=== PATIENT | female | born 1935 | race Asian ===

== ENCOUNTER 2025-05-19 18:27 | Emergency (ER) | payer MEDICARE, SELFPAY ==
[2025-05-19] VITALS (7 sets, daily range): BP systolic 120–156; BP diastolic 50–70; PULSE 53–66; RESP 12–21; TEMP 36.1–37; O2SAT 96–99; BMI 26.0
--- NOTE | 2025-05-19 18:30 | EKG_ITS ---
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1935 Requested By: Crow Kruger Order Number: [id number] Reading MD: Crow Kruger Measurements Intervals [place] Rate: 50 P: 40 VT: 164 QRS: -41 QRSD: 110 T: 8 QT: 455 QTc: 415 Interpretive Statements SINUS BRADYCARDIA LEFT AXIS DEVIATION [QRS AXIS < -30] LOW QRS VOLTAGE IN PRECORDIAL LEADS [QRS DEFLECTION < 1.0 mV IN CHEST LEADS] MINIMAL VOLTAGE CRITERIA FOR LVH, CONSIDER NORMAL VARIANT [MEETS CRITERIA IN ONE OF: R(aVL), S(V1), R(V5), R(V5/V6)+S(V1)] Compared to ECG 06/10/2024 20:26:18 Low QRS voltage now present Sinus rhythm no longer present /store/S0/[id number]/ecg/[id number].pdf
--- NOTE | 2025-05-19 18:50 | PD.EDSYNC ---
ED Syncope RME/HPI General Chief Complaint: Syncope / Near Syncope Stated Complaint: SYNCOPE Time Seen by Provider: 05/19/25 18:33 Arrival date/time: 05/19/25 18:27 RME / HPI RME / HPI narrative: Dr. Salcedo?s Main ED Evaluation: 89yo female SANTHOSH presents after a brief syncopal episode after having been exposed to ambient temperatures of over 100 degrees for ~1 hour while in a sitting position. Patient expressed depressed LOC and became minimally response, notified EMS, and was transported here. No seizure activity. No fever or chills. Denies chest pain, shortness of breath. Upon presentation to the ED, patient reports generalized fatigue/weakness. PMH HTN, hypothyroidism, and previous tachyarrhythmia that is controlled with metoprolol. No past social history. PHS includes thyroidectomy, , and knee surgery. Related Data Home Medications ?Medication ?Instructions ?Recorded ?Confirmed amlodipine 5 mg tablet 5 mg PO QDAY 06/10/24 06/10/24 levothyroxine 75 mcg tablet 75 mcg PO QDAY 06/10/24 06/10/24 losartan 50 mg tablet 50 mg PO QDAY 06/10/24 06/10/24 lovastatin 40 mg tablet 40 mg PO QPM 06/10/24 06/10/24 metoprolol succinate 50 mg 50 mg PO QDAY 06/10/24 06/10/24 tablet,extended release 24 hr nitroglycerin 0.4 mg sublingual See Rx Instructions .Route 06/10/24 06/10/24 tablet .COMPLEX PRN Chest Pain Previous Rx's ?Medication ?Instructions ?Recorded nitrofurantoin 100 mg PO Q12H 5 days #10 caps 05/19/25 monohydrate/macrocrystals 100 mg capsule (Macrobid) phenazopyridine 100 mg tablet 100 mg PO TID PRN pain 6 doses #6 05/19/25 (Pyridium) tabs Allergies Allergy/AdvReac Type Severity Reaction Status Date / Time bacitracin Allergy Verified 05/19/25 18:31 hydrochlorothiazide Allergy Verified 05/19/25 18:31 lisinopril Allergy Verified 05/19/25 18:31 Penicillins Allergy Verified 05/19/25 18:31 polymyxin B Allergy Verified 05/19/25 18:31 Review of Systems Review of Systems Systems Reviewed: All systems reviewed, normal except as documented Past Medical History Past Medical History CARDIAC: Positive Cardiac Disorders, Hypercholesterolemia and Hypertension; Negative Congestive Heart Failure RESPIRATORY: Negative Chronic Obstructive Pulmonary Disease (COPD) GENITOURINARY: Negative Renal Disease ENDOCRINE: Positive Hypothyroidism; Negative Diabetes Mellitus Type 1 or Diabetes Mellitus Type 2 Social History SMOKING STATUS: Never smoker SUBSTANCE USE: does not use ED Exam Narrative Physical exam: GENERAL APPEARANCE: alert and oriented x 4, nontoxic, appears of generalized fatigue, no acute distress VITALS: All vitals were reviewed and the pulse ox is 97% on room air, which is normal according to my interpretation. HEENT: Normocephalic, atraumatic; pupils equal, round, reactive to light; EOMI; mucous membranes pink, moist; oropharynx clear NECK: Supple LUNGS: CTABL; no wheezes, no rales, no rhonchi HEART: Regular rate, regular rhythm; normal S1, S2; no murmurs ABDOMEN: non distended; normal BS; soft, no tenderness, no guarding, no rebound; no masses, no organomegaly, no hernia BACK: no CVA tenderness EXTREMITIES: atraumatic; no edema NEUROLOGIC: awake; alert and oriented x4; cranial nerves II-XII grossly intact; GCS 15; no focal sensory or motor deficits; gait not observed PSYCHIATRIC: appropriate mood and affect SKIN: warm, dry, normal color; no rashes Course Quality Measures none Orders Category Date Time Status Professor Of Chemistry STAT Care 05/19/25 19:12 Completed EKG (ED ONLY) *Do not use* NOW Care 05/19/25 18:30 Completed Insert IV STAT Care 05/19/25 19:12 Completed Orthostatic Vitals NOW Care 05/19/25 19:[address] head/brain wo con Stat Exams 05/19/25 19:19 Completed EKG (ED Only) Stat Exams 05/19/25 18:30 Draft CBC Stat Lab 05/19/25 18:42 Completed Comprehensive Metabolic Panel Stat Lab 05/19/25 18:42 Completed Partial Thromboplastin Time Stat Lab 05/19/25 18:42 Completed Prothrombin Time with INR Stat Lab 05/19/25 18:42 Completed Troponin I Stat Lab 05/19/25 18:42 Completed Troponin I Stat Lab 05/19/25 21:18 Completed Urinalysis Stat Lab 05/19/25 20:34 Completed Levofloxacin [Levaquin] Med 05/19/25 22:22 Discontinued 250 mg PO X1 ONE Sodium Chloride 0.9% 500 ml [Ns] 500 ml Med 05/19/25 19:17 Discontinued IV 999 mls/hr cefTRIAXone/D5w 1gm IV premix [Rocephin/D5w 1gm IV Med 05/19/25 22:04 Discontinued premix] 1 gm in 50 ml IV X1 Oxygen Delivery NOW RT 05/19/25 19:12 Completed Vital Signs Vital signs: Vital Signs Temperature 98.6 F 05/19/25 18:35 Pulse Rate 55 L 05/19/25 18:35 Respiratory Rate 12 05/19/25 18:35 Blood Pressure 120/50 L 05/19/25 18:35 Pulse Oximetry (%) 97 05/19/25 18:35 Oxygen Delivery Method Room Air 05/19/25 18:35 Syncope MDM Narrative MDM Narrative:: Scribe Attestation: 05/19/25 - Luly Moore am scribing for and in the presence of Dr. Salcedo. 89yo female BIBA presents after a brief syncopal episode after having been exposed to ambient temperatures of over 100 degrees for ~1 hour while in a sitting position. Patient expressed depressed LOC and became minimally response, notified EMS, and was transported here. Please see PE findings. Lab markers demonstrate normal WBC count, mildly anemic with Hgb 11.7, normal platelet count, stable renal insufficiency, mildly elevated blood sugar of 113. UA with evidence of pyruia and positive leukocyte esterase suggestive of infection, for which empiric antibiotics were given. Patient remained hemodynamically stable and neurologically intact. Suspect syncope was likely due multifactoral in nature, likely dehydration, UTI, and heat exhaustion. Serial troponins were done and no signs of cardiac insult noted. Patient is not orthostatic and stable for discharge. Recommend continuing oral hydration and antibitics as prescribed. Patient data External records reviewed:: [facility] previous records (Per chart review, patient was seen here on 06/10/24 for chest pain.) and EMS form Clinical information provided by:: patient Social determinants that could affect healthcare access:: none Patient has the following chronic illnesses:: HTN, HLD How is presenting disease/condition affected by chronic disease/condition?: uneffected by Evaluation data The following diagnostics were reviewed and interpreted by me:: lab results, radiology exam(s) and EKG tracing(s) Lab and/or radiology exams considered but not ordered:: none Interpretation Summary: EKG done at 1836, sinus bradycardia, rate of 50, no acute ST segment changes, no ectopy, left axis deviation, normal intervals, ?LVH by voltage criteria, according to my interpretation. --------- [facility] Report Signed Patient: CHICHI RIVERA. Record#: [id number] Birthdate: 1935 Age/Sex: 89 / F Location: [facility] Attending Dr: Ordering Physician: Crow Emerson DO Date of Service: 05/19/25 Procedure(s): CT head/brain wo con Accession Number(s): [id number] cc: Crow Emerson DO; Jesus Alexis MD; NO PRIMARY/FAMILY,PHYSICIAN~ Examination: CT brain head without contrast. 2-D sagittal coronal reconstructions Date and time of exam:May 19, 90252012 hours INDICATIONS: Syncopal episode today CTDI: vol (mGy):50.2 DLP: (mGycm):963 Technique: Multiple CT axial sections of the brain have been obtained, 5 mm slice thickness. Contrast has not been administered. 2-D sagittal, coronal reconstructions have been obtained Low dose protocols were performed. One or more of the following dose reduction techniques were used; automated exposure control, adjustment of the mA and/or KV according to patient size, use of iterative reconstruction technique. Findings: No significant ventricular enlargement. Intra-axial or extra-axial hemorrhage density is not seen. No mass effect or midline shift Basal cisterns are not remarkable. Fourth ventricle is midline. Cranial vault intact. Impression: Negative for acute hemorrhage, mass effect or midline shift Advise clinical correlation and follow up accordingly Dictated By: Jesus Alexis MD Signed By: <Electronically signed by Jesus Alexis MD in OV> 05/19/252136 Medications / Prescriptions Medications or Prescriptions considered but not ordered:: none Medication administrations:: Medication Administration History Discontinued Medications Sodium Chloride (Ns) 500 mls @ 999 mls/hr IV .Q31M ONE Stop: 05/19/25 19:47 Last Infusion: 05/19/25 20:09 Dose: Infused Documented By: Admin: 05/19/25 19:38 Dose: 999 mls/hr Documented By: EDYTA Ceftriaxone Sodium/Dextrose (Rocephin/D5w 1gm Iv Premix) 1 gm in 50 mls @ 100 mls/hr IV X1 ONE Stop: 05/19/25 22:33 Last Admin: 05/19/25 22:28 Dose: Not Given Documented By: MICHELLE Non-Admin Reason: Discontinued Levofloxacin (Levofloxacin 250 Mg Tablet) 250 mg PO X1 ONE Stop: 05/19/25 22:23 Last Admin: 05/19/25 22:28 Dose: 250 mg Documented By: MICHELLE see above Consultations Consultation(s) initiated? (list below): No Diagnosis Syncope Differential Diagnosis: syncope due to orthostatic hypotension, vasovagal syncope, dehydration and other (electrolyte abnormality, heat exhaustion) Most likely diagnosis given after review of the tests above:: see clinical impression below Admission Indicated Admission indicated?: not indicated Admission Request Was there a request for admission?: No Disposition Plan Disposition Plan: Discharge Discharge Attestation Discharge Attestation: The patient and all family members were given an opportunity to ask questions and understood the discharge instructions. Discharge instructions specifically effects, indications for sooner follow up or return to the emergency department, and the expected course of current diagnosis. Patient condition: Stable Discharge Plan Plan Patient Disposition: HOME (Self Care) Discharge Disposition comment: Stable Prescriptions/Referrals Prescriptions/Med Rec: New nitrofurantoin monohyd/m-cryst [Macrobid] 100 mg capsule 100 mg PO Q12H 5 Days Qty: 10 0RF Rx Instructions: must administer with a meal/food phenazopyridine [Pyridium] 100 mg tablet 100 mg PO TID PRN (Reason: pain) Qty: 6 0RF No Action losartan 50 mg Tablet 50 mg PO QDAY metoprolol succinate 50 mg Tablet Extended Release 24 Hr 50 mg PO QDAY lovastatin 40 mg Tablet 40 mg PO QPM amlodipine 5 mg Tablet 5 mg PO QDAY levothyroxine 75 mcg Tablet 75 mcg PO QDAY nitroglycerin 0.4 mg Tablet, Sublingual See Rx Instructions .ROUTE .COMPLEX MDD PAIN PRN (Reason: Chest Pain) Rx Instructions: Q5 MIN Referrals: No Primary/Family,Physician [Primary Care Provider] - In 1 week Problem List Clinical Impression: Dehydration, Syncope, Urinary tract infection Patient/Caregiver Discharge Instructions Discharge Activity: activity as tolerated Education Materials: Urinary Tract Infections in Women, What Is Syncope?, Dehydration Additional Instructions: Maintain adequate rest, avoid temperature extremes. Medication as directed. Force fluids. Follow-up with primary care doctor for repeat urinalysis in approxi-1 to 2 weeks. Print Language: Congolese Stand Alone Forms: [employer] Award Info., Patient Portal Info Letter
--- NOTE | 2025-05-19 19:19 | XR_ITS ---
Examination: CT brain head without contrast. 2-D sagittal coronal reconstructions Date and time of exam:May 19, 90252012 hours INDICATIONS: Syncopal episode today CTDI: vol (mGy):50.2 DLP: (mGycm):963 Technique: Multiple CT axial sections of the brain have been obtained, 5 mm slice thickness. Contrast has not been administered. 2-D sagittal, coronal reconstructions have been obtained Low dose protocols were performed. One or more of the following dose reduction techniques were used; automated exposure control, adjustment of the mA and/or KV according to patient size, use of iterative reconstruction technique. Findings: No significant ventricular enlargement. Intra-axial or extra-axial hemorrhage density is not seen. No mass effect or midline shift Basal cisterns are not remarkable. Fourth ventricle is midline. Cranial vault intact. Impression: Negative for acute hemorrhage, mass effect or midline shift Advise clinical correlation and follow up accordingly
[2025-05-19] MEDS: SODIUM CHLORIDE 0.9% 500 ML 500 ML 999 ML IV (19:38)
[2025-05-19 19:45] LABS: Basophils # (Auto) 0.0 Thou/mm3 (0.0-0.2); Basophils % (Auto) 0 % (0-2.5); Eosinophils # (Auto) 0.1 Thou/mm3 (0.0-0.5); Eosinophils % (Auto) 2 % (0-10); Hematocrit 34.8 % (36.0-46.0); Hemoglobin 11.7 g/dL (12.0-16.0); Immature Granulocytes Auto 0.01 Thou/mm3 (0.00-0.00); Lymphocytes # (Auto) 1.6 Thou/mm3 (1.0-4.8); Lymphocytes % (Auto) 27 % (10-50); Mean Corpuscular HGB Conc 33.6 g/dl (31.0-37.0); Mean Corpuscular Hemoglobin 30.8 pg (25.0-35.0); Mean Corpuscular Volume 92 fL (80-100); Monocytes # (Auto) 0.5 Thou/mm3 (0.0-0.8); Monocytes % (Auto) 9 % (0-12); Neutrophils # (Auto) 3.6 Thou/mm3 (1.8-7.7); Neutrophils % (Auto) 62 % (37-80); Nucleated Red Blood Cell # 0.00 Thou/mm3 (0.00-0.00); Nucleated Red Blood Cell % 0 /100 WBC (0); Platelet Count 189 Thou/mm3 (140-440); RDW Standard Deviation 41.3 fL (36.4-46.3); Red Blood Count 3.80 Miln/mm3 (4.00-5.20); White Blood Count 5.8 Thou/mm3 (3.6-11.0)
[2025-05-19 20:00] LABS: INR 1.0 (0.9-1.3); Partial Thromboplastin Time 23.9 Seconds (22.0-36.0); Prothrombin Time 11.4 Seconds (9.0-12.2)
[2025-05-19 20:04] LABS: Alanine Aminotransferase 17 U/L (10-49); Albumin, Serum 3.9 gm/dL (3.4-4.8); Albumin/Globulin Ratio 1.4 (1.2-2.2); Alkaline Phosphatase 35 U/L (46-116); Anion Gap 11 (7-16); Aspartate Amino Transferase 23 U/L (0-34); BUN/Creatinine Ratio 12 Ratio (12-20); Bilirubin,Total 0.7 mg/dL (0.3-1.2); Blood Urea Nitrogen 15 mg/dL (9-23); Calcium 9.1 mg/dL (8.3-10.6); Calcium (Corrected) 9.2 mg/dL (8.5-10.1); Carbon Dioxide 22.8 mMol/L (20.0-31.0); Chloride 106 mMol/L (98-107); Creatinine (Component) 1.3 mg/dL (0.6-1.3); Estimated Creatinine Clearance 23.7 mL/min (>60); Globulin 2.7 gm/dL (2.3-3.5); Glucose 113 mg/dL (74-106); Osmolality,Calculated 281 (275-295); Potassium 4.0 mMol/L (3.4-5.1); Sodium 140 mMol/L (136-145); Total Protein 6.6 gm/dL (5.7-8.2); Troponin I < 0.020 ng/mL (0.0-0.045); eGFR 40 See Note
[2025-05-19 20:54] LABS: Collection Type, Urine Clean Catch
[2025-05-19 21:28] LABS: Bacteria,Urine Rare; Bilirubin,Urine Negative (Negative); Blood,Urine Negative (Negative); Clarity,Urine Turbid (Clear/Hazy); Color,Urine Lt-Yellow (Lt Yel-Yel); Glucose, Urine Negative (Negative); Ketones,Urine Negative (Negative); Leukocyte Esterase,Urine Positive (Negative); Nitrite,Urine Negative (Negative); PH,Urine 7.0 (5.0-7.0); Protein,Urine Negative (Neg - Trace); RBC,Urine 5 /hpf (0-3); Specific Gravity,Urine 1.009 (1.001-1.035); Squamous Epithelial Cell,Urine 5 /hpf (0-5); Urobilinogen,Urine Negative mg/dL (0.0-1.0); WBC,Urine 48 /hpf (0-5)
[2025-05-19 21:44] LABS: Troponin I < 0.020 ng/mL (0.0-0.045)
[2025-05-19] MEDS: LEVOFLOXACIN 250 MG TABLET PO (22:28)
== END 2025-05-19 22:40 | disposition home or self-care (01) ==
PROVIDERS: Emergency Provider Emergency Medicine
DX: E86.0 Dehydration (principal); N39.0 Urinary tract infection, site not specified; R55 Syncope and collapse; D64.9 Anemia, unspecified; N28.9 Disorder of kidney and ureter, unspecified; R73.9 Hyperglycemia, unspecified; I10 Essential (primary) hypertension; R00.1 Bradycardia, unspecified; E78.5 Hyperlipidemia, unspecified; E89.0 Postprocedural hypothyroidism; Z79.890 Hormone replacement therapy; Z79.899 Other long term (current) drug therapy; Z88.8 Allergy status to other drugs, medicaments and biological substances; Z88.0 Allergy status to penicillin; Z88.1 Allergy status to other antibiotic agents
CPT/HCPCS: 36415; 70450; 80053; 81001; 84484; 85025; 85610; 85730; 93005; 96360; 99284; J7999; A9270